=== PATIENT | male | born 1995 | race Hispanic/Latino ===

== ENCOUNTER 2023-11-18 16:51 | Emergency (ER) | payer MEDICAID, OTHER ==
[~2023-11-18] VITALS: Ht 182.9 cm; Wt 99.3 kg
[2023-11-18] MEDS ORDERED: KETO10TA2 PO (18:08)
[2023-11-18 18:09] VITALS: BP 124/65; PULSE 84; RESP 18; O2SAT 97
== END 2023-11-18 18:17 | disposition home or self-care (01) ==
LOC: EDH 16:51
DX: G44.209 Tension-type headache, unspecified, not intractable (principal)
CPT/HCPCS: 70450